=== PATIENT | female | born 1955 | race Caucasian/White ===

== ENCOUNTER 2024-03-11 06:30 | Day surgery (SDC) | payer MEDICARE, OTHER ==
[2024-03-11] MEDS ORDERED: Midazolam 1 MG/ML 2 ML SDV ONE (07:19)
[2024-03-11] MEDS ORDERED: Propofol 200 MG/20 ML SDV ONE ×2 (07:19→08:20)
[2024-03-11] MEDS ORDERED: fentaNYL 50 MCG/ML SDV ONE (07:19)
[2024-03-11] MEDS: Lactated Ringers 1,000 ML IV SCH (07:28)
== END 2024-03-11 09:27 | disposition home or self-care (01) ==
LOC: JP.SDS 06:30
PROVIDERS: ATTEND Family Medicine
DX: Z12.11 Encounter for screening for malignant neoplasm of colon (principal); D12.8 Benign neoplasm of rectum; Z86.010 Personal history of colon polyps; I10 Essential (primary) hypertension; E78.5 Hyperlipidemia, unspecified; K21.9 Gastro-esophageal reflux disease without esophagitis
CPT/HCPCS: 45380; J2250; J2704; J3010; J7120; 00811-QZ